=== PATIENT | female | born 1975 | race Hispanic/Latino ===

== ENCOUNTER 2017-07-09 10:00 | Inpatient (IN) | payer OTHER ==
[~2017-07-09] VITALS: Ht 180.3 cm; Wt 88.6 kg
[2017-07-09 09:44] VITALS: BP 137/90
[2017-07-09 09:48] LABS: BASOPHILS % (AUTO) 0.5 % (0.0-5.0); EOSINOPHILS % (AUTO) 1.5 % (0.0-8.0); HEMATOCRIT 41.7 % (36-48); LYMPHOCYTES % (AUTO) 42.2 % (21.0-51.0); MEAN CORPUSCULAR HEMOGLOBIN 30.2 pg (27.0-33.0); MEAN CORPUSCULAR HGB CONC 35.8 g/dL (32.0-36.0); MEAN CORPUSCULAR VOLUME 84.5 fL (79-99); MONOCYTES % (AUTO) 7.6 % (3.0-13.0); NEUTROPHILS % (AUTO) 48.2 % (40.0-77.0); PLATELET COUNT (AUTO) 289 K/uL (130-400); RED BLOOD CELL COUNT(AUTO) 4.94 MIL/uL (4.00-5.50); RED CELL DISTRIBUTION WIDTH 13.2 % (11.0-15.5); WHITE BLOOD COUNT (AUTO) 5.9 K/uL (4.8-10.8)
[2017-07-09 09:58] LABS: POTASSIUM 3.8 mmol/L (3.5-5.1)
[2017-07-09] MEDS ORDERED: ALPR0.25 PO (10:03)
[2017-07-09] MEDS ORDERED: CEFAZOLIN SODIUM 1 GM VIAL IVP SCH (10:30)
[2017-07-11] VITALS (21 sets, daily range): BP systolic 102–138; BP diastolic 61–90
[2017-07-11] MEDS ORDERED: CEFAZOLIN SODIUM 1 GM VIAL ONE (06:25)
[2017-07-11] MEDS ORDERED: LACTATED RINGERS 1000ML 1,000 ML IV ONE (06:26)
[2017-07-11] MEDS ORDERED: ONDANSETRON HCL 4 MG/2 ML VIAL ONE ×3 (06:31→20:09)
[2017-07-11] MEDS ORDERED: DEXAMETHASONE SOD PHOSPHATE 10MG/ML 1ML VIAL ONE ×2 (06:31→10:13)
[2017-07-11] MEDS ORDERED: NEOSTIGMINE 5MG/5ML SYR IV ONE ×2 (06:32→10:39)
[2017-07-11] MEDS ORDERED: GLYCOPYRROLATE 0.2 MG/ML 5 ML VIAL ONE (06:32)
[2017-07-11] MEDS ORDERED: LIDOCAINE PF 2% 5ML ABBOJECT ONE (06:32)
[2017-07-11] MEDS ORDERED: FENTANYL CITRATE PF 50 MCG/1 ML 2ML VIAL ONE ×4 (06:34→10:21)
[2017-07-11] MEDS ORDERED: MIDAZOLAM HCL 1 MG/ML 2ML VIAL ONE ×3 (06:34→06:57)
[2017-07-11] MEDS ORDERED: PROPOFOL 10 MG/ML 20ML VIAL IV ONE (06:34)
[2017-07-11] MEDS ORDERED: CALDOLOR 800MG+NS 250ML 250 ML IV ONE (06:36)
[2017-07-11] MEDS ORDERED: BUPIVACAINE/PF 0.25% 30ML VIAL IJ ONE (07:17)
[2017-07-11] MEDS ORDERED: MICROFIBRILLAR COLLAGEN 1 GM PACKAGE TP ONE (07:18)
[2017-07-11] MEDS ORDERED: BACITRACIN 50,000 UNIT VIAL ONE (07:18)
[2017-07-11] MEDS ORDERED: THROMBIN-JMI 20000 UNIT KIT TP ONE (07:18)
[2017-07-11] MEDS ORDERED: EPINEPHRINE 1 MG/ML AMPULE ONE (07:18)
[2017-07-11] MEDS ORDERED: PHENYLEPHRINE HCL 10 MG/ML 1ML VIAL IV ONE ×2 (08:18→10:13)
[2017-07-11] MEDS ORDERED: EPHEDRINE SULFATE 50 MG/ML AMPULE ONE (08:25)
[2017-07-11] MEDS ORDERED: ROCURONIUM BROMIDE 10MG/1ML 5ML VL ONE ×2 (10:12)
[2017-07-11] MEDS ORDERED: LIDOCAINE HCL 4% LTA SOL 4 ML VIAL ONE (10:13)
[2017-07-11] MEDS ORDERED: SUCCINYLCHOLINE CHLORIDE 20 MG/ML 10 ML VIAL ONE (10:13)
[2017-07-11] MEDS ORDERED: ARTIFICIAL TEARS 3.5 GM OINTMENT ONE (10:39)
[2017-07-11] MEDS ORDERED: SODIUM CHLORIDE 0.9% 10 ML VIAL IVP PRN (11:00)
[2017-07-11] MEDS ORDERED: ALPRAZOLAM 0.25 MG TABLET PO PRN (11:00)
[2017-07-11] MEDS ORDERED: MORPHINE SULFATE 2 MG/ML 1ML SYG IVP PRN (11:00)
[2017-07-11] MEDS ORDERED: CEFAZOLIN 2GM / 50 ML 50 ML IV SCH (11:00)
[2017-07-11] MEDS ORDERED: CEFAZOLIN SODIUM 1 GM VIAL IVP SCH (11:15)
[2017-07-11] MEDS ORDERED: MEPERIDINE-PF 25 MG/ML SYG ONE ×2 (11:18→11:37)
[2017-07-11] MEDS: LACTATED RINGERS 1000ML 1,000 ML IV SCH ×2 (12:35→23:47)
[2017-07-11] MEDS: DEXAMETHASONE SOD PHOSPHATE 4 MG/ML 1ML VIAL IVP SCH ×3 (12:35→23:27)
[2017-07-11] MEDS ORDERED: MORPHINE SULFATE 4 MG/1ML SYG ONE (15:27)
[2017-07-11] MEDS ORDERED: MORPHINE SULFATE 4 MG/1ML SYG IVP PRN (15:27)
[2017-07-11] MEDS: PROMETHAZINE HCL 25 MG/ML 1ML AMPULE IM PRN ×2 (16:41→23:30)
[2017-07-11] MEDS: HYDROCODONE/ACETAMINOPHEN 5/325 MG TAB PO PRN (19:48)
[2017-07-11] MEDS ORDERED: ONDANSETRON HCL 4 MG/2 ML VIAL IVP PRN (20:00)
[2017-07-11] MEDS ORDERED: MAG HYDROX/AL HYDROX/SIMETH ES 30 ML SUSP UDCUP PO PRN (20:00)
[2017-07-12] MEDS: HYDROCODONE/ACETAMINOPHEN 5/325 MG TAB PO PRN (02:45)
[2017-07-12 03:40] VITALS: BP 129/85
[2017-07-12] MEDS: DEXAMETHASONE SOD PHOSPHATE 4 MG/ML 1ML VIAL IVP SCH (05:00)
[2017-07-12] MEDS: LACTATED RINGERS 1000ML 1,000 ML IV SCH (05:02)
[2017-07-12 07:30] VITALS: BP 115/71
== END 2017-07-12 10:10 | disposition home or self-care (01) | DRG 473 ==
LOC: EDSTATUS 10:00 → DAHIP 07-11 05:43 → 4AH 07-11 11:31
PROVIDERS: ADMIT Neurological Surgery; ATTEND Neurological Surgery
PROC: 4A11X4G Monitoring of Peripheral Nervous Electrical Activity, Intraoperative, External Approach (ICD-10-PCS; 2017-07-11)
PROC: 0RG20K0 Fusion of 2 or more Cervical Vertebral Joints with Nonautologous Tissue Substitute, Anterior Approach, Anterior Column, Open Approach (ICD-10-PCS; principal; 2017-07-11 07:15)
PROC: 01N10ZZ Release Cervical Nerve, Open Approach (ICD-10-PCS; 2017-07-11 07:15)
PROC: BR111ZZ Fluoroscopy of Cervical Disc(s) using Low Osmolar Contrast (ICD-10-PCS; 2017-07-11 07:15)
DX: M48.02 Spinal stenosis, cervical region (principal); F41.9 Anxiety disorder, unspecified; M25.78 Osteophyte, vertebrae; M54.12 Radiculopathy, cervical region; Z90.710 Acquired absence of both cervix and uterus; Z98.1 Arthrodesis status
CPT/HCPCS: 36415; 72020; 80051; 85025; 93005; A4218; A4344; J0171; J0330; J0690; J1100; J1741; J2001; J2175; J2250; J2270; J2370; J2405; J2550; J2704; J2710; J3010; J3490; J7030; J7120

== ENCOUNTER → 2017-08-10 | Outpatient (CLI) | payer OTHER ==
[~2017-08-10] MED LIST: ALPR0.25 PO
== END | disposition home or self-care (01) ==
LOC: OIH 09:02
PROVIDERS: ATTEND Neurological Surgery
DX: M43.22 Fusion of spine, cervical region (principal)
CPT/HCPCS: 72040

== ENCOUNTER → 2018-02-22 | Outpatient (CLI) | payer OTHER | END | disposition home or self-care (01) | LOC: RAH 14:58 | PROVIDERS: ATTEND Family Medicine | DX: N63.41 Unspecified lump in right breast, subareolar (principal) | CPT/HCPCS: 76641 ==

== ENCOUNTER 2019-01-15 11:32 | Inpatient (IN) | payer BC, OTHER ==
[2019-01-15] VITALS (19 sets, daily range): BP systolic 98–131; BP diastolic 51–85
[~2019-01-15] VITALS: Ht 180.3 cm; Wt 82.8 kg
[2019-01-15 12:08] LABS: BASOPHILS % (AUTO) 0.4 % (0.0-5.0); EOSINOPHILS % (AUTO) 0.5 % (0.0-8.0); HEMATOCRIT 39.3 % (36-48); LYMPHOCYTES % (AUTO) 25.4 % (21.0-51.0); MEAN CORPUSCULAR HGB CONC 34.5 g/dL (32.0-36.0); MEAN CORPUSCULAR VOLUME 87.1 fL (79-99); MONOCYTES % (AUTO) 6.2 % (3.0-13.0); NEUTROPHILS % (AUTO) 67.5 % (40.0-77.0); NUCLEATED RED BLOOD CELLS 0.1 % (0.0-0.19); PLATELET COUNT (AUTO) 247 K/uL (130-400); RED BLOOD CELL COUNT(AUTO) 4.51 MIL/uL (4.00-5.50); RED CELL DISTRIBUTION WIDTH 13.3 % (11.0-15.5); WHITE BLOOD COUNT (AUTO) 6.4 K/uL (4.8-10.8)
[2019-01-15] MEDS ORDERED: MORPHINE SULFATE 4 MG/1ML SYG ONE (12:17)
[2019-01-15] MEDS ORDERED: KETOROLAC TROMETHAMINE 15MG/ML ONE ×2 (12:17→19:11)
[2019-01-15] MEDS ORDERED: SODIUM CHLORIDE 0.9% 1000ML 1,000 ML IV ONE ×2 (12:17→15:24)
[2019-01-15] MEDS ORDERED: ONDANSETRON HCL 4 MG/2 ML VIAL ONE ×2 (12:17→18:04)
[2019-01-15 12:20] LABS: CREATININE 0.7 mg/dL (0.5-1.5)
[2019-01-15 12:24] LABS: ALBUMIN 3.8 g/dL (3.5-5.0); BILIRUBIN,TOTAL 0.5 mg/dL (0.2-1.0); TOTAL PROTEIN, SERUM 7.4 g/dL (6.0-8.3)
[2019-01-15 13:08] LABS: APPEARANCE,URINE Cloudy (CLEAR); BILIRUBIN,URINE Negative (NEGATIVE); COLOR,URINE Yellow (YELLOW); GLUCOSE, URINE (UA) Negative (NEGATIVE); KETONES,URINE Negative (NEGATIVE); LEUKOCYTE ESTERASE ,URINE Negative (NEGATIVE); NITRATE,URINE Negative (NEGATIVE); OCCULT BLOOD,URINE Nonhemolyzed Trace (NEGATIVE); PH,URINE 5.5 (5.0-8.0); PROTEIN,URINE Negative (NEGATIVE)
[2019-01-15 13:36] LABS: BACTERIA,URINE Few /HPF (None Seen); MUCUS,URINE Moderate LPF (None Seen); RBC,URINE 0-1 /HPF (0-1); SQUAMOUS EPITHELIAL CELL,UR Few /HPF (0-2)
[2019-01-15] MEDS: SODIUM CHLORIDE 0.9% 1000ML 1,000 ML IV SCH (14:39)
[2019-01-15] MEDS ORDERED: MORPHINE SULFATE 2 MG/ML 1ML SYG IVP PRN (14:45)
[2019-01-15] MEDS ORDERED: MORPHINE SULFATE 2 MG/ML 1ML SYG ONE (17:15)
--- NOTE | 2019-01-15 17:35 | NUR ---
PATIENT ADMITTED TO ROOM 418. OR STAFF READY TO TAKE PATIENT DOWN TO OR FOR SX WITH DR VAN. CONSENT SIGNED AND PLACED ON CHART. ASSESSMENT DONE AND DOCUMENTED. INCOMPLETE ADMISSION DUE TO PT LEAVING FOR SX. WILL PASSED ON TO NEXT UPCOMING NURSE, RAYMOND.
[2019-01-15] MEDS ORDERED: CEFTRIAXONE SODIUM 2 GM VIAL IVP PRN (17:45)
[2019-01-15] MEDS ORDERED: CEFTRIAXONE SODIUM 1 GM ONE (17:59)
[2019-01-15] MEDS ORDERED: SCOPOLAMINE HYDROBROMIDE 1 EACH ADH..PATCH TD ONE (18:00)
[2019-01-15] MEDS ORDERED: LIDOCAINE PF 2% 5ML ABBOJECT ONE (18:04)
[2019-01-15] MEDS ORDERED: MIDAZOLAM HCL 1 MG/ML 2ML VIAL ONE (18:04)
[2019-01-15] MEDS ORDERED: SUCCINYLCHOLINE 200MG/10ML SYR ONE (18:04)
[2019-01-15] MEDS ORDERED: FENTANYL CITRATE PF 50 MCG/1 ML 2ML VIAL ONE ×2 (18:05→19:11)
[2019-01-15] MEDS ORDERED: ROCURONIUM 10MG/1ML SYR 10 MG/ML ML ONE (18:05)
[2019-01-15] MEDS ORDERED: PROPOFOL 10 MG/ML 20ML VIAL IV ONE (18:05)
[2019-01-15] MEDS ORDERED: IOHEXOL-350 50ML VIAL IV ONE (18:08)
[2019-01-15] MEDS ORDERED: OPIUM/BELLADONNA ALKALOIDS 1 EACH SUPP.RECT RC ONE (18:31)
[2019-01-15] MEDS ORDERED: EPHEDRINE SULFATE 50 MG/ML AMPULE ONE (18:33)
[2019-01-15] MEDS: FAMOTIDINE/PF 20 MG/2 ML VIAL IV SCH (20:35)
--- NOTE | 2019-01-15 22:32 | NUR ---
Paged DUPLICATOR PUNCH SET UP OPERATOR Lilian Casillas regarding patient complaining of pain to right flank and having sensation of needing to void even though she has the poe catheter in place which is draining properly and bladder scanned showed 0ml so she is not retaining anything. Pending call back
[2019-01-15 22:37] LABS: HEMATOCRIT 36.3 % (36-48); MEAN CORPUSCULAR HGB CONC 34.2 g/dL (32.0-36.0); MEAN CORPUSCULAR VOLUME 87.5 fL (79-99); NUCLEATED RED BLOOD CELLS 0.1 % (0.0-0.19); PLATELET COUNT (AUTO) 213 K/uL (130-400); RED BLOOD CELL COUNT(AUTO) 4.15 MIL/uL (4.00-5.50); RED CELL DISTRIBUTION WIDTH 13.3 % (11.0-15.5); WHITE BLOOD COUNT (AUTO) 5.4 K/uL (4.8-10.8)
[2019-01-15] MEDS ORDERED: ACETAMINOPHEN-CODEINE 300/30MG TAB PO PRN (22:45)
[2019-01-15 22:49] LABS: INR 1.02 (0.85-1.15); PROTHROMBIN TIME 10.7 SEC (9.6-11.6)
[2019-01-15 22:52] LABS: ALBUMIN 3.3 g/dL (3.5-5.0); BILIRUBIN,TOTAL 0.4 mg/dL (0.2-1.0); CREATININE 0.6 mg/dL (0.5-1.5); POTASSIUM 4.1 mmol/L (3.5-5.1); TOTAL PROTEIN, SERUM 6.6 g/dL (6.0-8.3)
[2019-01-16] MEDS ORDERED: KETOROLAC TROMETHAMINE 15MG/ML IV PRN
[2019-01-16] MEDS: SODIUM CHLORIDE 0.9% 1000ML 1,000 ML IV SCH (00:39)
[2019-01-16] MEDS: LACTATED RINGERS 1000ML 1,000 ML IV SCH ×2 (01:46→06:00)
[2019-01-16 04:00] VITALS: BP 110/65
[2019-01-16 05:05] LABS: BASOPHILS % (AUTO) 0.3 % (0.0-5.0); EOSINOPHILS % (AUTO) 0.3 % (0.0-8.0); HEMATOCRIT 36.1 % (36-48); LYMPHOCYTES % (AUTO) 15.5 % (21.0-51.0); MEAN CORPUSCULAR HEMOGLOBIN 30.4 pg (27.0-33.0); MEAN CORPUSCULAR HGB CONC 34.7 g/dL (32.0-36.0); MEAN CORPUSCULAR VOLUME 87.6 fL (79-99); MONOCYTES % (AUTO) 6.7 % (3.0-13.0); NEUTROPHILS % (AUTO) 77.2 % (40.0-77.0); PLATELET COUNT (AUTO) 200 K/uL (130-400); RED BLOOD CELL COUNT(AUTO) 4.12 MIL/uL (4.00-5.50); WHITE BLOOD COUNT (AUTO) 7.5 K/uL (4.8-10.8)
[2019-01-16 05:20] LABS: CREATININE 0.7 mg/dL (0.5-1.5); POTASSIUM 3.8 mmol/L (3.5-5.1)
[2019-01-16 07:43] VITALS: BP 112/65
[2019-01-16] MEDS: FAMOTIDINE/PF 20 MG/2 ML VIAL IV SCH (08:57)
[2019-01-16] MEDS ORDERED: PHENAZOPYRIDINE HCL 200 MG TABLET PO SCH (09:00)
[2019-01-16] MEDS ORDERED: PHEN-948 PO (10:30)
--- NOTE | 2019-01-16 10:38 | NUR ---
DC PLAN PER PATIENT, SHE IS INDEPENDENT, LIVES WITH HER SPOUSE AND THEIR SON, NO PROVIDER, NO EQUIPMENT, AND FEELS SAFE TO RETURN HOME. Addendum: 01/16/19 at 1038 by ELMER BULLARD RN CM Amended: Links added.
[2019-01-16 11:32] VITALS: BP 100/66
--- NOTE | 2019-01-16 12:06 | NUR ---
PATIENT GIVEN DISCHARGE INSTRUCTIONS AND EDUCATION ON FOLLOW UP APPOINTMENTS AND NEW PRESCRIBED MEDICATIONS. PATIENT VERBALIZED UNDERSTANDING OF ALL EDUCATION GIVEN VIA TEACH BACK. IV DISCONTINUED, CATHETER INTACT. PATIENT LEFT VIA WHEELCHAIR, FAMILY AT SIDE. PATIENT VOIDED 300 ML BEFORE LEAVING. NO DISTRESS NOTED UPON DISCHARGE. NO CONCERNS VOICED. ALL BELONGINGS TAKEN WITH.
== END 2019-01-16 12:00 | disposition home or self-care (01) | DRG 670 ==
LOC: EDH 11:32 → EDHIP 14:39 → 4CH 17:29
PROVIDERS: ADMIT Hospitalist; ATTEND Hospitalist
PROC: 0TC68ZZ Extirpation of Matter from Right Ureter, Via Natural or Artificial Opening Endoscopic (ICD-10-PCS; principal; 2019-01-15 18:11)
PROC: BT1D1ZZ Fluoroscopy of Right Kidney, Ureter and Bladder using Low Osmolar Contrast (ICD-10-PCS; 2019-01-15 18:11)
DX: N20.2 Calculus of kidney with calculus of ureter (principal); R19.5 Other fecal abnormalities; Z77.22 Contact with and (suspected) exposure to environmental tobacco smoke (acute) (chronic); Z87.442 Personal history of urinary calculi; Z90.710 Acquired absence of both cervix and uterus; Z90.49 Acquired absence of other specified parts of digestive tract; Z88.8 Allergy status to other drugs, medicaments and biological substances; Z79.899 Other long term (current) drug therapy
CPT/HCPCS: 36415; 74176; 74420; 76770; 80048; 80053; 81001; 82360; 83690; 85025; 85027; 85610; C1758; G0378; J0330; J0696; J1885; J2001; J2250; J2270; J2405; J2704; J3010; J3490; J7030; J7120; Q9967

== ENCOUNTER 2022-11-09 22:52 | Emergency (ER) | payer BC ==
[~2022-11-09] VITALS: Ht 180.3 cm; Wt 83.9 kg
[~2022-11-09 22:52] MED LIST changes: +PHEN-948 PO
[2022-11-09 23:24] LABS: BASOPHILS # (AUTO) 0.03 K/uL (0.00-0.20); BASOPHILS % (AUTO) 0.4 % (0.0-5.0); EOSINOPHILS # (AUTO) 0.12 K/uL (0.00-0.70); EOSINOPHILS % (AUTO) 1.6 % (0.0-8.0); HEMATOCRIT 43.2 % (36-48); IMMATURE GRANULOCYTE ABSOLUTE 0.02 K/uL (0-1); LYMPHOCYTES # (AUTO) 4.1 K/uL (1.0-4.8); LYMPHOCYTES % (AUTO) 55.4 % (21.0-51.0); MEAN CORPUSCULAR HGB CONC 33.6 g/dL (32.0-36.0); MEAN CORPUSCULAR VOLUME 86.4 fL (79-99); MONOCYTES # (AUTO) 0.6 K/uL (0.1-1.0); MONOCYTES % (AUTO) 7.9 % (3.0-13.0); NEUTROPHILS # (AUTO) 2.5 K/uL (1.8-7.7); NEUTROPHILS % (AUTO) 34.4 % (40.0-77.0); PLATELET COUNT (AUTO) 258 K/uL (130-400); RED CELL DISTRIBUTION WIDTH 12.5 % (11.0-15.5); WHITE BLOOD COUNT (AUTO) 7.3 K/uL (4.8-10.8)
[2022-11-09 23:25] LABS: APPEARANCE,URINE CLEAR (CLEAR); BILIRUBIN,URINE NEGATIVE (NEGATIVE); GLUCOSE, URINE (UA) NEGATIVE (NEGATIVE); KETONES,URINE NEGATIVE (NEGATIVE); LEUKOCYTE ESTERASE ,URINE NEGATIVE Leu/uL (NEGATIVE); NITRATE,URINE NEGATIVE (NEGATIVE); OCCULT BLOOD,URINE NEGATIVE (NEGATIVE); PROTEIN,URINE NEGATIVE (NEGATIVE); UROBILINOGEN,URINE 0.2 mg/dL (0.2-1.0)
[2022-11-09] MEDS ORDERED: KETOROLAC 30MG VIAL (30MG/ML) IVP ONE (23:30)
[2022-11-09] MEDS ORDERED: ONDANSETRON 4MG INJ IVP ONE (23:30)
[2022-11-09] MEDS ORDERED: MAG/ALUM/SIMETH 30 ML UDCUP PO ONE (23:30)
[2022-11-09] MEDS ORDERED: METOCLOPRAMIDE 10 MG/2 ML VIAL IVP ONE (23:30)
[2022-11-09] MEDS ORDERED: LIDOCAINE HCL 2% VISCOUS 15 ML UDCUP PO ONE (23:30)
[2022-11-09] MEDS ORDERED: DiphenhydrAMINE HCL 50 MG/ML VIAL IV ONE (23:30)
[2022-11-09 23:36] LABS: ADD UA MICROSCOPIC NO; COLOR,URINE Light-Yellow (YELLOW)
[2022-11-09 23:36] LABS: ALBUMIN 3.9 g/dL (3.5-5.0); BILIRUBIN,TOTAL 0.3 mg/dL (0.2-1.0); CREATININE 0.8 mg/dL (0.5-1.5); TOTAL PROTEIN, SERUM 7.7 g/dL (6.0-8.3)
[2022-11-09] MEDS ORDERED: DICYCLOMINE 20MG (10MG/ML) AMP IM STA (23:36)
[2022-11-09 23:37] LABS: HCG,QUALITATIVE URINE NEGATIVE (NEGATIVE)
[2022-11-10] LABS: POTASSIUM 2.9 mmol/L (3.5-5.1)
[2022-11-10] MEDS ORDERED: 0.9%NACL 1000ML 1,000 ML IV ONE
[2022-11-10] MEDS ORDERED: IOHEXOL 350 MG/ML 100ML INFUS..BTL IV ONE (00:02)
[2022-11-10] MEDS ORDERED: POTASSIUM BICARB/CIT AC 25 MEQ TABLET.EFF ONE (00:04)
[2022-11-10] MEDS ORDERED: POTASSIUM BICARB/CIT AC 25 MEQ TABLET.EFF PO ONE (00:30)
[2022-11-10] MEDS ORDERED: DICY20TA2 PO (01:05)
[2022-11-10] MEDS ORDERED: OMEP40CA21 PO (01:05)
[2022-11-10 01:15] VITALS: BP 134/76; PULSE 71; RESP 16; O2SAT 98
== END 2022-11-10 01:18 | disposition home or self-care (01) ==
LOC: EDH 22:52
DX: R10.13 Epigastric pain (principal); G43.909 Migraine, unspecified, not intractable, without status migrainosus; K27.9 Peptic ulcer, site unspecified, unspecified as acute or chronic, without hemorrhage or perforation; Z90.49 Acquired absence of other specified parts of digestive tract; Z90.710 Acquired absence of both cervix and uterus
CPT/HCPCS: 99284; 74177; 96374; 96375; 71045; 84484; 80053; 83690; 85025; 81003; 81025; 36415; 93005; 96372; J1200; J7030; J2405; J1885; J0500; J2765; Q9967